=== PATIENT | male | born 1990 | race Caucasian/White ===

== ENCOUNTER 2018-02-08 00:59 | Emergency (ER) | payer SELFPAY ==
--- NOTE | 2018-02-08 01:21 | ED Physician Documentation ---
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 pt presents to the ED via POV with friends c/o Right wrist/hand pain after jumping in the air and punching a sade bear also making contact with the floor. Pt denies other symptoms or complaints. pt reports he had 4 beers 2 hrs patrol [employer]. Onset: just prior to arrival Where: home Severity: severe Context: blow Associated Symptoms: tingling, numbness distally Modifying Factors: pain on movement - ROS CONST: no problems CVS/RESP: none NEURO: none MS/SKIN/LYMPH: none - PAST HX Past History: other (MRSA abscess underarm-resolved) Allergies/Adverse Reactions: Allergies Allergy/AdvReac Type Severity Reaction Status Date / Time No Known Allergies Allergy Verified 02/08/18 01:22 Home Medications: Ambulatory Orders Medication Instructions Recorded NK 02/08/18 - SOCIAL HX Smoking History: non-smoker Alcohol Use: occasionally Drug Use: none - FAMILY HX Family History: none - VITAL SIGNS Vital Signs: Vital Signs Temp Pulse Resp BP Pulse Ox 97.8 F 83 16 140/98 98 02/08/18 01:14 02/08/18 01:14 02/08/18 01:14 02/08/18 01:14 02/08/18 01:14 - REVIEWED ASSESSMENTS Nursing Assessment Reviewed: Yes Vitals Reviewed: Yes Progress - Consult/PCP Time Called: 02:15 Consult/PCP: Dr [facility]. accepted pt for transfer to ED via POV ED Results Lab/Radiology - Radiology Radiology Impressions: Three-view right hand Clinical history: Punching injury. Pain and deformity. Findings: Examination right hand in palmar, lateral and oblique views demonstrates dislocation of the 5th carpometacarpal joint. There is no evident fracture. Impression: 1. Dislocation at the 5th carpometacarpal joint. Electronically signed on Feb 08, 2018 1:50:52 AM COLD PRESS OPERATOR by: Rl Reyes Three views right wrist Clinical history: Punching injury. Findings: Examination right wrist in palmar, lateral and oblique views demonstrates dorsal dislocation of the 5th metacarpal base relative to the hamate. There is no evident fracture. Impression: 1. Dislocation at the 5th carpometacarpal joint. Electronically signed on Feb 08, 2018 1:52:20 AM COLD PRESS OPERATOR by: Rl Reyes - Orders Orders: ED Orders Category Date Time Status HAND 3 VIEWS OR MORE [RAD] Stat Exams 02/08/18 Ordered WRIST 3 VIEWS OR MORE [RAD] Stat Exams 02/08/18 Ordered HYDROcodone /APAP 5/325 [[place] 5/325] Med 02/08/18 01:51 Once 1 each PO NOW ONE Ondansetron HCl Rapdis [Zofran Odt] Med 02/08/18 01:51 Once 4 mg PO NOW ONE Upper Extremity Injury Physic - Physical Exam General Appearance: no acute distress, alert Hand: asymmetry, bone tenderness (Left ulnar aspect of wrist ), deformity, ec chymosis, limited ROM Wrist: asymmetry, bone tenderness, deformity, ecchymosis, limited ROM, pain, soft tissue tenderness, swelling Elbow/Forearm: normal inspection, non-tender, no evidence of injury, normal ROM Shoulder: normal inspection, non-tender, no evidence of injury, normal ROM Neuro/Vascular/Tendon: no vascular compromise, motor nml, sensation nml Skin: warm,dry Head/ENT: nml inspection, pharynx nml Neck/Back: nml inspection, non-tender Resp/CVS: chest non-tender, breath sounds nml, heart sounds nml, no resp. distress, lungs clear, reg. rate & rhythm Abdomen: non-tender, pelvis stable Discharge Clincal Impression: Closed dislocation of fifth metacarpal bone of right hand Condition: Good Disposition: 02 XFER SHT-TRM HOSP Decision to Admit: NO Date of Decison to Admit: 02/08/18 Decision Time: 02:31
[2018-02-08] MEDS: HYDROcodone /APAP 5/325 1 EACH TABLET PO ONE (02:10)
[2018-02-08] MEDS: ONDANSETRON HCL 4 MG TAB.RAPDIS PO ONE (02:10)
[2018-02-08 06:50] VITALS: BP 140/98
--- NOTE | 2018-02-08 07:10 | Diagnostic Imaging Report ---
JUN BROWER [facility] [id number] [facility] [address] [address] Report Submission Date: Feb 08, 2018 1:50:52 AM LINE LEAD Patient Study Name: NELDA ROMANO Date: Feb 08, 2018 1:19:38 AM LINE LEAD Modality Type: DX Gender: M Description: UPPER EXTREMITY : 88 Institution: [facility] Physician: JUN BROWER Three-view right hand Clinical history: Punching injury. Pain and deformity. Findings: Examination right hand in palmar, lateral and oblique views demonstrates dislocation of the 5th carpometacarpal joint. There is no evident fracture. Impression: 1. Dislocation at the 5th carpometacarpal joint. Electronically signed on Feb 08, 2018 1:50:52 AM LINE LEAD by: Rl KOWALSKI
--- NOTE | 2018-02-08 07:11 | Diagnostic Imaging Report ---
JUN BROWER [facility] [address] [facility] [address] [id number] Report Submission Date: Feb 08, 2018 1:52:20 AM THERMOSTAT MAKER Patient Study Name: NELDA ROMANO Date: Feb 08, 2018 1:24:19 AM THERMOSTAT MAKER Modality Type: DX Gender: M Description: UPPER EXTREMITY : 88 Institution: [facility] Physician: JUN BROWER Three views right wrist Clinical history: Punching injury. Findings: Examination right wrist in palmar, lateral and oblique views demonstrates dorsal dislocation of the 5th metacarpal base relative to the hamate. There is no evident fracture. Impression: 1. Dislocation at the 5th carpometacarpal joint. Electronically signed on Feb 08, 2018 1:52:20 AM THERMOSTAT MAKER by: Rl KOWALSKI
== END 2018-02-08 02:50 | disposition short-term general hospital (02) ==
LOC: ED 00:59
DX: S63.286A Dislocation of proximal interphalangeal joint of right little finger, initial encounter (principal); W22.09XA Striking against other stationary object, initial encounter; Y92.9 Unspecified place or not applicable
CPT/HCPCS: 73110; 73130; A9270; 99282; 99283